=== PATIENT | female | born 1985 | race African-American/Black ===

== ENCOUNTER 2016-07-24 12:16 | Emergency (ER) | payer BC ==
[2016-07-24] MEDS ORDERED: PREDNISONE 20 MG TABLET PO ONE (12:19)
[2016-07-24] MEDS ORDERED: FAMOTIDINE 20 MG TABLET PO ONE (12:19)
--- NOTE | 2016-07-24 12:22 | ER Document Report ---
ED Medical Screen (RME) - General Stated Complaint: RASH, SWELLING OF FACE AND HANDS Time seen by provider: 12:21 Mode of Arrival: Ambulatory Information source: Patient Notes: 31-year-old female with urticaria that started spontaneously 30s day. His been waxing and waning. Oropharynx without swelling and lungs are clear in triage. She has been taking Benadryl at home. Her is deployed so she has to drive home. TRAVEL OUTSIDE OF THE [place] IN LAST 30 DAYS: No - Related Data Allergies/Adverse Reactions: No Known Allergies Allergy (Verified 07/24/16 12:19) Past Medical History - Social History Chew tobacco use (# tins/day): No Frequency of alcohol use: None Drug Abuse: None Renal/ Medical History: Denies: Hx Peritoneal Dialysis Past Surgical History: Reports: Hx Gynecologic Surgery - D&C - Immunizations Hx Diphtheria, Pertussis, Tetanus Vaccination: Yes
[2016-07-24] MEDS ORDERED: DIPHENHYDRAMINE HCL 50 MG/ML VIAL IV ONE (12:42)
[2016-07-24] MEDS ORDERED: EPINEPHRINE INJ/PF 1 MG/1 ML AMPULE IM ONE (12:42)
[2016-07-24] MEDS ORDERED: NORMAL SALINE 1000 ML 1,000 ML IV ONE (12:44)
--- NOTE | 2016-07-24 12:45 | ER Document Report ---
ED Allergic Reaction - General Chief Complaint: Allergic Reaction Stated Complaint: RASH, SWELLING OF FACE AND HANDS Mode of Arrival: Ambulatory Information source: Patient Notes: Patient reports a 2 day history of generalized pruritus and skin rash. Patient states that her hands, feet and face are swollen today. Patient reports some mild throat discomfort although denies any difficulty breathing or swallowing. Patient denies any new medications, foods or detergents. TRAVEL OUTSIDE OF THE [place] IN LAST 30 DAYS: No - HPI Onset: Other - 2 days Onset/Duration: Worse Quality of pain: No pain Identified cause: No Skin rash / itching: "Hives" Swelling: Face, Hands, Feet Associated symptoms: None - Related Data Allergies/Adverse Reactions: No Known Allergies Allergy (Verified 07/24/16 12:19) Past Medical History - General Information source: Patient - Social History Smoking Status: Unknown if Ever Smoked Chew tobacco use (# tins/day): No Frequency of alcohol use: None Drug Abuse: None Occupation: administrative Lives with: Family Family History: Reviewed & Not Pertinent Patient has suicidal ideation: No Patient has homicidal ideation: No - Medical History Medical History: Negative Renal/ Medical History: Denies: Hx Peritoneal Dialysis Past Surgical History: Reports: Hx Gynecologic Surgery - D&C - Immunizations Hx Diphtheria, Pertussis, Tetanus Vaccination: Yes Review of Systems - Review of Systems Constitutional: No symptoms reported. denies: Fever, Recent illness EENT: Other - Generalized facial swelling. denies: Difficulty swallowing, Throat swelling, Mouth swelling Cardiovascular: Edema - Bilateral hands and feet. denies: Chest pain Respiratory: No symptoms reported. denies: Cough, Short of breath Gastrointestinal: No symptoms reported. denies: Abdominal pain, Nausea, Vomiting Genitourinary: No symptoms reported Female Genitourinary: No symptoms reported Musculoskeletal: No symptoms reported Skin: Rash Hematologic/Lymphatic: No symptoms reported Neurological/Psychological: No symptoms reported Physical Exam - Vital signs Vitals: Temp Pulse Resp BP Pulse Ox 98.0 F 114 H 18 127/85 H 97 07/24/16 12:20 07/24/16 12:20 07/24/16 12:20 07/24/16 12:20 07/24/16 12:20 - General General appearance: Appears well, Alert In distress: None - HEENT Head: Normocephalic Eyes: Periorbital edema - Mild periorbital edema Conjunctiva: Normal Nasal: Normal Mouth/Lips: Normal. No: Angioedema Mucous membranes: Normal Pharynx: Normal. No: Tonsillar hypertrophy, Uvular edema, Potential airway comprom. Neck: Normal, Supple. No: Lymphadenopathy Notes: Subtle generalized swelling to face - Respiratory Respiratory status: No respiratory distress Chest status: Nontender Breath sounds: Normal. No: Rales, Rhonchi, Stridor, Wheezing Chest palpation: Normal - Cardiovascular Rhythm: Regular Heart sounds: S1 appreciated, S2 appreciated Murmur: No - Back Back: Normal, Nontender - Extremities General upper extremity: Edema - 1+ bilateral hands, Normal strength General lower extremity: Edema - 1+ bilateral feet, Normal strength - Neurological Neuro grossly intact: Yes Cognition: Normal Dahlia Coma Scale Eye Opening: Spontaneous [place] Coma Scale Verbal: Oriented [place]ia Coma Scale Motor: Obeys Commands Dahlia Coma Scale Total: 15 - Psychological Associated symptoms: Normal affect, Normal mood - Skin Skin Temperature: Warm Skin Moisture: Dry Skin irregularity: Rash - Urticarial rash distributed generally Course - Re-evaluation Re-evalutation: 07/24/16 13:25 Patient's heart rate in the 100s, patient denies any difficulty breathing, no increased facial swelling appreciated. 07/24/16 13:59 Rash decreasing in intensity. Heart rate in the 90s. Patient denies complaints at present. 07/24/16 15:23 Vital signs stable, no potential airway compromise. Respirations even unlabored. Discussed worsening signs or symptoms that patient should return immediately for. Patient feels that she can manage her symptoms at home. Consult with Dr. Mendoza, agrees with plan for discharge. - Vital Signs Vital signs: Temp Pulse Resp BP Pulse Ox 98.0 F 114 H 18 107/65 99 07/24/16 12:20 07/24/16 12:20 07/24/16 15:01 07/24/16 15:01 07/24/16 15:01 Discharge - Discharge Clinical Impression: Allergic reaction Qualifiers: Encounter type: initial encounter Qualified Code(s): T78.40XA - Allergy, unspecified, initial encounter Condition: Stable Disposition: HOME, SELF-CARE Additional Instructions: Return immediately for any new or worsening symptoms Followup with your primary care provider, call tomorrow to make a followup appointment ACUTE ALLERGIC REACTION: Your symptoms are due to an allergic reaction. Allergy can cause hives, swelling of the hands, feet, and face, hoarseness, and difficulty swallowing or breathing. It may be due to exposure to medication, animal dander, foods, infection, or insect bites. Medication is a common cause, even when prior use of this same medication caused no problems. Acute treatment may include adrenalin and antihistamines. Usually, the specific allergic agent can't be identified unless repeated episodes occur. Home treatment includes the following: (1) Stop any suspicious medications. This will be discussed with you. (2) Oral antihistamines for the next four to five days. Example, diphenhydramine (Benadryl) every four hours. (3) You may also use cimetidine (Tagamet), ranitidine (Zantac), or famotidine ( Pepcid) every four hours if diphenhydramine is not controlling itching and hives. (4) Avoid aspirin until the hives completely disappear. (5) Avoid hot baths or showers until the hives are completely gone. Call the doctor if faintness, difficulty swallowing, tightness in the chest , or wheezing occurs. EPINEPHRINE: An injection of epinephrine (also called adrenalin) is used to treat allergic reactions, asthma, and some other medical conditions. It is a stimulant medication that consticts blood vessels, relaxes smooth muscles such as in the bronchioles of the lung, elevates blood pressure, and increases heart rate. It can temporarily make you feel very nervous and shakey, but it's affects last only a short time, about 15 to 30 minutes at most. STEROID MEDICATION: You have been given a medicine of the cortisone/steroid class. This medication is used to control inflammation or allergy. It is usually only given for a short period of time, until the acute process subsides. There are usually no side effects from short-term use of cortisone-like medications. Some persons feel an increased sense of well-being and are not sleepy at bedtime. Long-term use of cortisone medications is best avoided, unless required for a severe condition. If your condition does not remit, or relapses after the course of corticosteroid medication, you should consult your physician. ACID-SUPPRESSING MEDICATION: You have a prescription for medicine which reduces the stomach's secretion of acid. Examples include Zantac, Tagament, and Pepcid. These drugs are often used to allow healing of ulcers or esophagitis. They may be needed to prevent recurrence of ulcers in some patients, or to prevent damage from acid reflux in the esophagus. Take all medication as prescribed, even after the pain is gone. Regular antacids may be added as needed if you have symptoms while taking this medicine. These medications sometimes are prescribed for allergic reactions because they have anti-histaminic effects and relieve the rash and itching of the reaction. There are usually no side effects from this medication. But, in rare cases and particularly in the elderly, serious problems can occur. Contact your doctor if there is fever, rash, hallucinations, confusion, or unusual bruising. Contact your doctor at once if you develop lightheadedness, black or bloody stool, or bloody vomitus. ANTIHISTAMINES: An antihistamine has been given and/or prescribed to control your symptoms. Antihistamines are used for many reasons, including itching, watering eyes, runny nose, allergic swelling, hives, and insect stings. Antihistamines may cause drowsiness, especially with the first dose. Do not operate machinery or drive while under the effects of the medication. Other common side effects include dry mouth and eyes. In older persons, antihistamines can occasionally cause urinary retention, constipation, and trouble focusing the eyes. Do not combine the medication with alcohol, or with any other medication without talking to your doctor. USE OF DIPHENHYDRAMINE: The use of diphenhydramine (Benadryl) has been recommended to control allergic symptoms. The 25 mg strength is available over- the-counter, as well as the elixir. This antihistamine is used for many symptoms. It's useful for itching, watering eyes and nose, allergic swelling, hives, and insect stings. The medication can be repeated four times daily. Age Elixir (12.5 mg/tsp) 25 mg pill 2-3 yr 1/2 tsp 4-8 yr 1 tsp 9-14 yr 2 tsp one tab adult 1-2 tabs Antihistamines may cause drowsiness, especially with the first dose. Do not operate machinery or drive while under the effects of the medication. Do not combine the medication with alcohol, or with any other medication without talking to your doctor. FOLLOW-UP CARE: If you have been referred to a physician for follow-up care, call the physician s office for an appointment as you were instructed or within the next two days. If you experience worsening or a significant change in your symptoms, notify the physician immediately or return to the Emergency Department at any time for re-evaluation. Prescriptions: Epinephrine [Epipen 2-Jimmy] 0.3 mg IM ASDIR PRN #1 unit PRN Reason: Famotidine [Pepcid 20 mg Tablet] 20 mg PO BID #12 tablet Prednisone [Deltasone 20 mg Tablet] 3 tab PO DAILY 4 Days Forms: Return to Work Referrals: RENAE MASTERS NP [Primary Care Provider] - 07/26/16
[2016-07-24 15:18] VITALS: BP 107/65
== END 2016-07-24 15:40 | disposition home or self-care (01) ==
LOC: ER 12:16
DX: R21 Rash and other nonspecific skin eruption (principal); L29.9 Pruritus, unspecified; R22.0 Localized swelling, mass and lump, head; T78.40XA Allergy, unspecified, initial encounter
CPT/HCPCS: 99283; 96372; 96374; J1200; J0171; J7512; J7030